=== PATIENT | female | born 1960 | race Caucasian/White ===

== ENCOUNTER 2021-07-08 18:27 | Inpatient (IN) | payer BC, SELFPAY ==
[2021-07-08] VITALS (8 sets, daily range): BP systolic 94–107; BP diastolic 61–69; PULSE 76–116; RESP 19–24; TEMP 36.5–38.1; O2SAT 83–94; BMI 27.4; BMI 28.8
--- NOTE | 2021-07-08 18:45 | CT_ITS ---
EXAM: CT ANGIOGRAPHY CHEST WITHOUT AND WITH INTRAVENOUS CONTRAST CLINICAL INDICATION: pulmonary embolism TECHNIQUE: Helically acquired angiography images were obtained of the chest without and with intravenous contrast. This CT exam was performed using one or more of the following dose reduction techniques: automated exposure control, adjustment of the mA and/or kV according to patient size, and/or use of iterative reconstruction technique. This report was created using [employer] report generation technology. MIP reconstructed images were created and reviewed. CONTRAST: IV 100mL Isovue-370 COMPARISON: None. FINDINGS: PULMONARY ARTERIES: No demonstrated pulmonary embolism or arterial dissection. AORTA: Unremarkable. Normal in caliber. No evidence of dissection. GREAT VESSELS OF AORTIC ARCH: Unremarkable. Normal in caliber. No evidence of dissection. LUNGS AND PLEURAL SPACES: There is bilateral pneumonia. No mass. No pleural effusion or thickening. HEART: Unremarkable. Heart size is normal. No pericardial effusion. No signs of right heart strain, ratio of right ventricle to left ventricle measures less than 1. MEDIASTINUM: There is a hiatal hernia. No mediastinal or hilar adenopathy. Esophagus is unremarkable. THYROID: Unremarkable. No thyroid lesions. BONES/JOINTS: There are degenerative findings of the thoracic spine. No suspicious lytic or blastic abnormality. LIVER: 18 mm simple cysts of the liver. No follow-up required. CT/CTA Chest W/WO Contrast IMPRESSION: 1. No demonstrated pulmonary embolism or arterial dissection. 2. There is bilateral pneumonia. Electronically Signed: Patrice Schumacher MD at 20:01 EDT , Service support ,
--- NOTE | 2021-07-08 18:46 | EDS_ITS ---
HPI History of Present Illness Chief Complaint: Shortness of Breath Informant: patient Narrative Narrative: 61-year-old female states that she became ill with Covid approximately 10 days ago. She states that she has been checking her pulse oximeter at home and has gone down to 88%. She was advised by her doctor's office to come to emergency. Patient does note some vomiting diarrhea. She notes continued cough and shortness of breath she is not vaccinated against COVID-19 PFSH PFSH Medical History Breast cancer Non-smoker Medical History no medical history no medical history Home Medications omeprazole 20 mg PO DAILY 07/08/21 [History Last Taken Unknown] Allergy/AdvReac Type Severity Reaction Status Date / Time No Known Allergies Allergy Verified 07/08/21 18:31 Surgical History (Updated 07/08/21 @ 19:00 by Gibson Lopes) History of mastectomy Social History (Updated 07/08/21 @ 18:[address] Camden Gilliland, DO) Smoking Status: Never smoker substance use type: does not use ROS ROS ED Constitutional Constitutional ED: Reports chills, fever(s) and sweats; Denies weight loss Eyes Eyes: Denies change in vision or diplopia ENT ENT ED: Denies ear pain, rhinorrhea or sore throat Cardiovascular Cardiovascular: Denies chest pain, orthopnea, palpitations or racing heartbeat Respiratory/Chest Respiratory/Chest: Reports cough, dyspnea and dyspnea on exertion; Denies orthopnea Gastrointestinal Gastrointestinal: Reports diarrhea, nausea and vomiting; Denies abdominal pain Genitourinary Genitourinary ED: Denies dysuria, hematuria or urinary frequency Musculoskeletal Musculoskeletal: Reports myalgias; Denies arthralgias Integumentary Denies abscess or rash Neurologic Neurologic: Reports headache(s); Denies weakness Psychiatric Psychiatric: Denies anxiety, depression, suicidal ideation or suicidal thoughts Endocrine Endocrinology: Denies polydipsia, polyphagia or polyuria Allergic/Immunologic Allergic/Immunologic ED: Denies mouth swelling, tongue swelling or urticaria EXAM Physical Exam Const Vital Signs: 07/08/21 18:29 07/08/21 21:30 07/08/21 21:33 Temperature 98.4 F Temperature Source Temporal Pulse Rate 106 H 106 H 116 H Respiratory Rate 20 H Blood Pressure 94/69 Blood Pressure Mean 77 Pulse Ox 92 83 88 Oxygen Delivery Method Room Air Room Air Nasal Cannula Oxygen Flow Rate (L/min) 3 07/08/21 21:38 Temperature 99.4 F H Temperature Source Temporal Pulse Rate 76 Respiratory Rate 24 H Blood Pressure 103/67 Blood Pressure Mean 79 Pulse Ox 92 Oxygen Delivery Method Nasal Cannula Oxygen Flow Rate (L/min) 3 Positive well nourished and well developed General Appearance ED: well developed HEENT Reports normocephalic, head/scalp atraumatic and moist mucous membranes Eyes PERRL and EOMs intact bilaterally Neck no lymphadenopathy, supple and no JVD Resp normal respiratory effort and clear to auscultation bilaterally Cardio regular rate, regular rhythm and no murmurs GI normal to inspection, nondistended, normoactive bowel sounds and non-tender Palpation: soft Back/Spine no CVA tenderness and normal ROM Extremity normal to inspection General Extremety ED: Negative for edema General Extremity: Negative for edema Neuro oriented x3 and CN's II-XII intact bilaterally Sensorium / Orientation: alert Motor Exam: strength 5/5 throughout Psych mental status grossly normal Mood & Affect: Negative for depressed or tearful Skin no rashes or lesions noted and no wounds MDM MDM MDM Narrative Medical decision making narrative: Patient is Covid positive. She is 83% on room air. She has a leukopenia at 3.7. Platelet count of 306. The patient's troponin is 9. BUN 10 with a creatinine of 0.71. CTA of the chest demonstrates multifocal areas of pneumonitis. There is no pulmonary embolism. Patient is currently requiring 4 L and is satting 91%. We will give her a dose of Decadron. Plan will be for admission Lab Data Labs: Laboratory Results - last 24 hr 07/08/21 07/08/21 18:50 18:50 WBC 3.7 L RBC 4.19 L Hgb 11.1 L Hct 34.5 L MCV 82.3 MCH 26.5 L MCHC 32.2 RDW Std Deviation 41.4 RDW Coeff of Brooks 13.9 Plt Count 306 MPV 8.3 Immature Gran % (Auto) 0.500 Neut % (Auto) 80.9 H Lymph % (Auto) 15.1 L [place] % (Auto) 3.5 Eos % (Auto) 0.0 Baso % (Auto) 0.0 Absolute Neuts (auto) 3.0 Absolute Lymphs (auto) 0.56 L Nucleated RBC % 0 Differential Comment SCANNED Diff Path Review May foll Sodium 135 L Potassium 3.3 L Chloride 100 Carbon Dioxide 25.0 Anion Gap 10 BUN 10 Creatinine 0.71 Estim Creat Clear Calc 67.09 Est GFR (MDRD) Af Amer 108 Est GFR (MDRD) Non-Af 89 BUN/Creatinine Ratio 14.2 Glucose 111 H Calcium 8.5 Total Bilirubin 0.50 AST 33 ALT 34 Alkaline Phosphatase 59 Troponin I High Sens 9 Total Protein 7.2 Albumin 2.9 L Globulin 4.3 H Albumin/Globulin Ratio 0.7 L Radiography Diagnostic Testing: Radiology Impression Chest CTA 07/08/21 18:45 IMPRESSION: 1. No demonstrated pulmonary embolism or arterial dissection. 2. There is bilateral pneumonia. Electronically Signed: Patrice Schumacher MD at 20:01 EDT , Service support , Discharge Plan Dx/Rx/DC Orders Clinical Impression: COVID-19, Acute hypoxemic respiratory failure due to COVID-19, Leukopenia Disposition Disposition: Acute Care [facility]
[2021-07-08 19:08] LABS: Absolute Lymphocyte Count 0.56 X10^3/uL (0.83-4.51); Hematocrit 34.5 % (37-47); Hemoglobin 11.1 g/dL (12.0-15.0); Lymphocyte # 0.56 X10^3/ul (0.83-4.51); Lymphocyte % 15.1 % (19-41); Mean Corp Hgb Conc 32.2 g/dL (32-36); Mean Corpuscular Hgb 26.5 pg (27.0-32.0); Mean Corpuscular Volume 82.3 fL (81-99); Mean Platelet Vol. 8.3 fl (6.2-12.0); Monocyte# 0.13 X10^3/uL; Monocyte% 3.5 % (0-10); NRBC Flagged by Analyzer 0 % (0-5); Neutrophil % 80.9 % (47-70); POSITIVE DIFFERENTIAL YES; POSITIVE MORPHOLOGY YES; Platelet Count 306 K/mm3 (150-450); RBC Distribution Width CV 13.9 % (11.6-14.6); RBC Distribution Width SD 41.4 fl (35.1-43.9); Red Blood Count 4.19 M/mm3 (4.2-5.4); White Blood Count 3.7 K/mm3 (4.4-11.0)
[2021-07-08] MEDS: 0.9% Normal Saline 1,000 ML 1000 ML IV (19:11)
[2021-07-08 19:21] LABS: Differential Indicated SCAN CRITERIA MET
[2021-07-08 19:23] LABS: ALB/GLOB Ratio 0.7 RATIO (0.9-2.4); AST(SGOT) 33 U/L (15-37); Alanine Aminotransfer ALT/SGPT 34 U/L (13-56); Albumin, Serum 2.9 g/dL (3.2-5.0); Alkaline Phosphatase 59 U/L (45-117); Anion Gap 10 (5-15); BUN 10 mg/dL (7-18); BUN/Creat Ratio 14.2 RATIO (10-20); Calcium,Total 8.5 mg/dL (8.5-10.1); Chloride 100 mmol/L (98-107); Creatinine, Serum 0.71 mg/dL (0.55-1.02); EST Glomerular Filtration Rate 89 mL/min (>60); Est Glom Filt Rate - Afr Amer 108 mL/min (>60); Estimated Creatinine Clearance 67.09 ml/min; Globulin 4.3 g/dL (2.2-4.2); Glucose 111 mg/dL (74-106); Potassium 3.3 mmol/L (3.5-5.1); Protein, Total 7.2 g/dL (6.4-8.2); Sodium Level 135 mmol/L (136-145); Troponin-I HS 9 pg/mL (3.0-54.0)
[2021-07-08 20:02] LABS: Differential Comment SCANNED
--- NOTE | 2021-07-08 21:32 | ED.RN ---
PT WAS 83% ON ROOM AIR WHILE GETTING UP TO BSC. PT WAS THEN PLACED ON 3L NC WHERE HER PULSE OX ONLY CAME UP TO 88% WHILE STANDING AT BEDSIDE FOR A FEW MINUTES. PT STATES HEADACHE WORSENED WHILE UP
--- NOTE | 2021-07-08 21:56 | HP.PCM.HOS_ITS ---
HPI - General General Date of Admission: 07/08/21 Date of Service: 07/08/21 Chief Complaint: Hypoxia HPI Narrative ISABELLA CRUZ, is a 61 F with a significant history of breast cancer status post mastectomy who presents to emergency department with hypoxia on the day of presentation. Patient was monitoring her oxygen saturation and documenting on her remote medical records. A nurse at her PCP office called and advised her to come to emergency department because her oxygen saturation were low. Reportedly her oxygen saturation was about 88% on room air. Patient reports Covid-like symptoms for 10 days. She reported her Covid-like symptoms as shortness of breath; fever with highest temperature of 102 Fahrenheit. Further she reports cough which is dry most of the time but occasionally productive for clear sputum. She denies nausea or vomiting. She reports diarrhea. However on the day of presentation she did not have diarrhea. She denies dysgeusia or anosmia. She reports anorexia and myalgia. She reports fatigue and weakness. She tested positive for COVID-19 virus at [facility] urgent care 6 days before presentation. She is unvaccinated for COVID-19 virus. [facility] Medical History Breast cancer Non-smoker Medical History no medical history Home Medications omeprazole 20 mg PO DAILY 07/08/21 [History Last Taken Unknown] Allergy/AdvReac Type Severity Reaction Status Date / Time No Known Allergies Allergy Verified 07/08/21 18:31 Family History Mother Ovarian cancer Father Lung cancer Surgical History History of mastectomy Social History Smoking Status: Never smoker substance use type: does not use ROS ROS Narrative Constitutional: Reports fever, chills, fatigue, and anorexia. Denies change in weight Eyes: Denies blurry vision, change in eye color, change in vision, discharge from eye(s), double vision, erythema, eye pain, loss of vision or other HEENT: Denies abnormal hearing, dysphagia, ear pain, epistaxis, headache(s), hearing loss, nasal congestion, nasal discharge, post nasal drip, sinus pressure, sore throat or other Cardiovascular: Denies chest pain or palpitations. Respiratory/Chest: Reports cough and with occasional sputum production. Reports shortness of breath. Denies wheezes. Gastrointestinal: Denies nausea or vomiting. Reports diarrhea (on the day of presentation she did not have any diarrhea ) Genitourinary: Denies burning urination, difficulty urinating, dysuria, hematuria, nocturia, urinary frequency, urinary hesitancy, urinary incontinence, urinary urgency or other Musculoskeletal: Reports myalgia. Denies arthralgias, back pain, joint pain, joint stiffness, joint swelling, or other Neurologic: Denies abnormal gait, abnormal speech, confusion, disequilibrium, dizziness, focal weakness, headache(s), numbness, paresthesias, seizure-like activity, seizures, syncope, tingling, tremor(s) or other Psychiatric: Denies anxiety, depression, homicidal ideation, suicidal ideation or other Endocrinology: Denies change in body appearance, excessive sweating, heat intolerance, polydipsia, polyuria or other Hematologic/Lymphatic: Denies anemia, easy bleeding, easy bruising, lymphadenopathy or other Integumentary: Denies rashes Allergic/Immunologic: Denies rhinitis, hives, eczema, asthma or other Vital Signs Vital Signs Vital Signs: 07/08/21 18:29 07/08/21 21:30 07/08/21 21:33 Temperature 98.4 F Temperature Source Temporal Pulse Rate 106 H 106 H 116 H Respiratory Rate 20 H Blood Pressure 94/69 Blood Pressure Mean 77 Pulse Ox 92 83 88 Oxygen Delivery Method Room Air Room Air Nasal Cannula Oxygen Flow Rate (L/min) 3 07/08/21 21:38 07/08/21 21:51 Temperature 99.4 F H 97.7 F L Temperature Source Temporal Temporal Pulse Rate 76 77 Respiratory Rate 24 H 19 H Blood Pressure 103/67 96/65 Blood Pressure Mean 79 75 Pulse Ox 92 93 Oxygen Delivery Method Nasal Cannula Room Air Oxygen Flow Rate (L/min) 3 Weight Weight: 70.307 kg Body Mass Index (BMI) 27.4 Physical Exam Narrative Physical exam: General: Well-nourished, well-developed. Head: Normocephalic, atraumatic, no tenderness Eyes: PERRLA, EOMI ENT, no trauma, moist mucous membranes, no rhinorrhea Neck: Nontender, full range of motion, no spinal tenderness, deformities, step- off CVS: Regular rate and rhythm. S1-S2 present. No murmur, gallop or rub. Respiratory : Rales. Chest wall nontender, no wheezing Abdomen: Soft, nontender, nondistended, normal bowel sounds, no masses : Deferred Back: Nontender, no CVA tenderness, no midline spinal tenderness, deformities, step-offs Extremities: Nontender full range of motion, no trauma Skin: Normal color, no trauma, abrasions Neuro: Alert, oriented, cranial nerves II through XII grossly intact. Psychiatry: Normal mood. Normal affect. Not depressed. Not anxious. Results Lab / Micro Data Result Diagrams: 07/08/21 18:50 07/08/21 18:50 Labs: Laboratory Results - last 24 hr 07/08/21 18:50: WBC 3.7 L, RBC 4.19 L, Hgb 11.1 L, Hct 34.5 L, MCV 82.3, MCH 26.5 L, MCHC 32.2, RDW Std Deviation 41.4, RDW Coeff of Brooks 13.9, Plt Count 306, MPV 8.3, Immature Gran % (Auto) 0.500, Neut % (Auto) 80.9 H, Lymph % (Auto) 15.1 L, [place] % (Auto) 3.5, Eos % (Auto) 0.0, Baso % (Auto) 0.0, Absolute Neuts (auto) 3.0, Absolute Lymphs (auto) 0.56 L, Nucleated RBC % 0, Differential Comment SCANNED, Diff Path Review February foll 07/08/21 18:50: Sodium 135 L, Potassium 3.3 L, Chloride 100, Carbon Dioxide 25.0, Anion Gap 10, BUN 10, Creatinine 0.71, Estim Creat Clear Calc 67.09, Est GFR (MDRD) Af Amer 108, Est GFR (MDRD) Non-Af 89, BUN/Creatinine Ratio 14.2, Glucose 111 H, Calcium 8.5, Total Bilirubin 0.50, AST 33, ALT 34, Alkaline Phosphatase 59, Troponin I High Sens 9, Total Protein 7.2, Albumin 2.9 L, Globulin 4.3 H, Albumin/Globulin Ratio 0.7 L Radiology Impression Chest CTA 07/08/21 18:45 IMPRESSION: 1. No demonstrated pulmonary embolism or arterial dissection. 2. There is bilateral pneumonia. Electronically Signed: Patrice Schumacher MD at 20:01 EDT , Service support , Assessment & Plan Assessment/Plan (1) Acute hypoxemic respiratory failure due to COVID-19: (2) COVID-19: (3) Leukopenia: QUALIFIERS: Leukopenia type: lymphocytopenia Qualified Code(s): D72.810 - Lymphocytopenia (4) Hypokalemia: PLAN: Acute hypoxemic respiratory failure secondary to SARS- COV 2 Oxygen saturation of 83% on room air at emergency department. Patient required 3L of nasal cannula oxygen. Oxygen supplementation continued. Review of Emergency department labs showed leukopenia with white count of 3.7; neutrophilia with neutrophils of 80.9% and lymphopenia with lymphocyte of 15.1%. Review of community records show that 07/02/2021 patient had a positive Covid PCR test at [facility]. Actual chest CTA image independently interpreted showed bilateral infiltrates. I agree with alleges interpretation. Procalcitonin was ordered. Procalcitonin returned to be unrevealing. Received Decadron p.o. at emergency department and continued. Since patient symptoms started 10 days ago will start patient on remdesivir. Creatinine clearance and liver enzymes is appropriate. Will trend CMP. Tylenol for fever Mucinex ordered Incentive spirometer and Acapella ordered. Hypokalemia Review of Emergency department showed potassium level of 3.3. Like secondary to diarrhea and poor nutrition Potassium placement ordered. Check magnesium. GERD PPI continued. DVT prophylaxis Subcutaneous Lovenox ordered. Charges/Coding Visit Charges Inpatient E&M: 76744 Init Hosp L3
[2021-07-08] MEDS: dexAMETHasone 4 MG Tablet 6 MG PO (21:57)
[2021-07-09] VITALS (8 sets, daily range): BP systolic 100–120; BP diastolic 63–78; PULSE 66–76; RESP 18–22; TEMP 36.2–36.9; O2SAT 92–99
[2021-07-09 00:21] LABS: Magnesium 1.9 mg/dL (1.6-2.6)
[2021-07-09] MEDS: 0.9% Saline Lock 10 ML Syringe IV ×2 (00:45→20:19)
[2021-07-09] MEDS: Potassium Chloride Oral Tablet 20 MEQ 60 MEQ PO (00:46)
[2021-07-09] MEDS: Enoxaparin 30 MG/0.3 ML Syringe SC ×3 (00:46→20:18)
[2021-07-09] MEDS: Acetaminophen 325 MG Tablet 650 MG PO (00:46)
[2021-07-09] MEDS: guaiFENesin 1,200 MG Tablet 1200 MG PO ×3 (00:51→20:18)
[2021-07-09 01:32] LABS: Procalcitonin 0.13 ng/mL (0.00-0.09)
[2021-07-09 07:23] LABS: Absolute Lymphocyte Count 0.44 X10^3/uL (0.83-4.51); Absolute Neutrophil Count 2.6 X10^3/uL (2.0-7.7); Basophil# 0.01 X10^3/uL; Basophil% 0.3 % (0-1); Hemoglobin 10.9 g/dL (12.0-15.0); Lymphocyte # 0.44 X10^3/ul (0.83-4.51); Lymphocyte % 14.1 % (19-41); Mean Corp Hgb Conc 31.1 g/dL (32-36); Mean Corpuscular Volume 83.3 fL (81-99); Mean Platelet Vol. 8.7 fl (6.2-12.0); Monocyte# 0.08 X10^3/uL; Monocyte% 2.6 % (0-10); NRBC Flagged by Analyzer 0 % (0-5); Neutrophil # 2.55 X10^3/uL (2.7-7.7); Neutrophil % 81.4 % (47-70); POSITIVE DIFFERENTIAL YES; POSITIVE MORPHOLOGY YES; Platelet Count 308 K/mm3 (150-450); RBC Distribution Width SD 42.9 fl (35.1-43.9); White Blood Count 3.1 K/mm3 (4.4-11.0)
[2021-07-09 07:28] LABS: Differential Indicated SCAN CRITERIA MET
[2021-07-09 08:02] LABS: ALB/GLOB Ratio 0.6 RATIO (0.9-2.4); AST(SGOT) 29 U/L (15-37); Alanine Aminotransfer ALT/SGPT 34 U/L (13-56); Albumin, Serum 2.5 g/dL (3.2-5.0); Alkaline Phosphatase 56 U/L (45-117); Anion Gap 9 (5-15); BUN 11 mg/dL (7-18); BUN/Creat Ratio 19.4 RATIO (10-20); Calcium,Total 8.3 mg/dL (8.5-10.1); Chloride 108 mmol/L (98-107); Creatinine, Serum 0.57 mg/dL (0.55-1.02); EST Glomerular Filtration Rate 114 mL/min (>60); Est Glom Filt Rate - Afr Amer 138 mL/min (>60); Estimated Creatinine Clearance 83.57 ml/min; Globulin 4.2 g/dL (2.2-4.2); Glucose 148 mg/dL (74-106); Potassium 4.3 mmol/L (3.5-5.1); Protein, Total 6.7 g/dL (6.4-8.2); Sodium Level 140 mmol/L (136-145)
[2021-07-09 08:40] LABS: Differential Comment SCANNED
[2021-07-09] MEDS: dexAMETHasone 2 MG TABLET 6 MG PO (09:18)
[2021-07-09] MEDS: Pantoprazole Sodium 20 MG Tablet PO (09:18)
--- NOTE | 2021-07-09 13:07 | CASEMGMT ---
LI BRASWELL Assessment: Face to Face with pt for initial transition planning/care coordination assessment. LI BRASWELL introduced self and role at [facility], pt voices understanding and consents to assessment. Pt is A/O x4 and answers all questions appropriately at this time. Pt sitting up in bed in no distress with O2 on. Care providers, pharmacy, and demographics verified/updated. Admitting Dx: SARS secondary to COVID 19 PCP: [facility] Specialists: Pt denies. Preferred Pharmacy: [facility] Insurance: [place] Prescription Benefit: yes LW/HPOA: Pt denies having a LW/DPOA and denies need for info regarding AD. LNOK: Justin Khan, Living Arrangements: Pt lives with and two adult children in a single story house with 4 steps to enter with a rail. Pt reports being I in ADL's and denies concerns at home. Transportation: Pt drives self and denies concerns with transportation. DME/HHC/SNF: Pt denies having any DME. She has had HHC in the past but is unsure of the name of the agency. Denies hx of SNF stays. Pt was first tested for COVID at [facility] urgent care. Pt family is negative. Pt states she can quarantine from family using separate bedrooms and bathrooms. She has family who can provide her with groceries and supplies. Provided pt with a list of local in network DME companies, she has no preference should she need O2 at dc. Pt states no concerns with going home at time of dc. Pt states no further concerns/needs. CM to follow. Advised pt to ask CM if any further question/concerns/needs arise, voices understanding. Pt Goal: Home Plan: Home
--- NOTE | 2021-07-09 14:09 | PCM.PN.HOSP ---
Subjective Subjective Doing well, feels a bit better than when she came in. She is at around day 10 or 11 today of symptom onset. Objective Data Objective Data Vital Signs: Vital Signs Temp Pulse Resp BP Pulse Ox 97.7 F L 72 18 100/70 96 07/09/21 09:30 07/09/21 09:30 07/09/21 09:30 07/09/21 09:30 07/09/21 09:30 Oxygen Flow Rate (L/min) 2 Oxygen Delivery Method Nasal Cannula Weight: 162 lb 7.691 oz Body Mass Index (BMI) 28.8 Intake & Output: Intake and Output for Last 24 Hours 07/08/21 07/09/21 07/10/21 03:59 03:59 03:59 Intake Total 1000 / 1000 250 / 250 Balance 1000 / 1000 250 / 250 Lab / Micro Data Result Diagrams: 07/09/21 06:10 07/09/21 06:10 Labs: Laboratory Results - last 24 hr 07/08/21 18:50: WBC 3.7 L, RBC 4.19 L, Hgb 11.1 L, Hct 34.5 L, MCV 82.3, MCH 26.5 L, MCHC 32.2, RDW Std Deviation 41.4, RDW Coeff of Brooks 13.9, Plt Count 306, MPV 8.3, Immature Gran % (Auto) 0.500, Neut % (Auto) 80.9 H, Lymph % (Auto) 15.1 L, [place] % (Auto) 3.5, Eos % (Auto) 0.0, Baso % (Auto) 0.0, Absolute Neuts (auto) 3.0, Absolute Lymphs (auto) 0.56 L, Nucleated RBC % 0, Differential Comment SCANNED, Diff Path Review February07/08/21 18:50: Sodium 135 L, Potassium 3.3 L, Chloride 100, Carbon Dioxide 25.0, Anion Gap 10, BUN 10, Creatinine 0.71, Estim Creat Clear Calc 67.09, Est GFR (MDRD) Af Amer 108, Est GFR (MDRD) Non-Af 89, BUN/Creatinine Ratio 14.2, Glucose 111 H, Calcium 8.5, Total Bilirubin 0.50, AST 33, ALT 34, Alkaline Phosphatase 59, Troponin I High Sens 9, Total Protein 7.2, Albumin 2.9 L, Globulin 4.3 H, Albumin/Globulin Ratio 0.7 L 07/08/21 18:50: Magnesium 1.9 07/09/21 00:50: Procalcitonin 0.13 H 07/09/21 06:10: WBC 3.1 L, RBC 4.20, Hgb 10.9 L, Hct 35.0 L, MCV 83.3, MCH 26.0 L, MCHC 31.1 L, RDW Std Deviation 42.9, RDW Coeff of Brooks 14.0, Plt Count 308, MPV 8.7, Immature Gran % (Auto) 1.600 H, Neut % (Auto) 81.4 H, Lymph % (Auto) 14.1 L, [place] % (Auto) 2.6, Eos % (Auto) 0.0, Baso % (Auto) 0.3, Absolute Neuts (auto) 2.6, Absolute Lymphs (auto) 0.44 L, Nucleated RBC % 0, Differential Comment SCANNED, Diff Path Review February07/09/21 06:10: Sodium 140, Potassium 4.3, Chloride 108 H, Carbon Dioxide 23.0, Anion Gap 9, BUN 11, Creatinine 0.57, Estim Creat Clear Calc 83.57, Est GFR (MDRD) Af Amer 138, Est GFR (MDRD) Non-Af 114, BUN/Creatinine Ratio 19.4, Glucose 148 H, Calcium 8.3 L, Total Bilirubin 0.40, AST 29, ALT 34, Alkaline Phosphatase 56, Total Protein 6.7, Albumin 2.5 L, Globulin 4.2, Albumin/Globulin Ratio 0.6 L Radiography Diagnostic Testing: Radiology Impression Chest CTA 07/08/21 18:45 IMPRESSION: 1. No demonstrated pulmonary embolism or arterial dissection. 2. There is bilateral pneumonia. Electronically Signed: Patrice Schumacher MD at 20:01 EDT , Service support , Physical Exam Const alert, oriented x3 and no apparent distress General Appearance: cooperative HEENT normocephalic and moist oral mucous membranes Eyes PERRL, EOMs intact bilaterally and conjunctivae normal Neck supple and no JVD Resp normal respiratory effort, no retractions, no use of accessory muscles and clear to auscultation bilaterally Auscultation: Negative for crackles, rales, rhonchi or wheezes Cardio regular rate, regular rhythm, S1 normal heart sound, S2 normal heart sound and no murmurs GI soft to palpation, non-tender and non-distended; Negative for hepatosplenomegaly Extremity no clubbing, cyanosis or edema Skin no rashes or lesions noted Neuro no focal motor deficits and no sensory deficits noted Psych affect normal Appearance: appropriate Assessment & Plan Assessment/Plan (1) Acute hypoxemic respiratory failure due to COVID-19: (2) COVID-19: (3) Leukopenia: QUALIFIERS: Leukopenia type: lymphocytopenia Qualified Code(s): D72.810 - Lymphocytopenia (4) Hypokalemia: PLAN: 1. Acute hypoxic respiratory failure secondary to COVID-19 pneumonia -Continue with Decadron and remdesivir, the remdesivir was started on day 9 of 10 of symptoms -We will continue to monitor oxygenation status and may need to provide either Lasix or may need to obtain a sputum culture if there is some worsening -CT is negative for PE -Continue with daily CBC CMP secondary to remdesivir 2. GERD -Stable -Continue with PPI DVT: Lovenox Charges/Coding Visit Charges Inpatient E&M: 72440 Subs Hosp L2
[2021-07-09 14:10] LABS: Pathologist Review Reviewed
[2021-07-10] VITALS (7 sets, daily range): BP systolic 96–125; BP diastolic 65–75; PULSE 67–70; RESP 16–18; TEMP 36.4–36.6; O2SAT 86–97
[2021-07-10 07:02] LABS: Absolute Lymphocyte Count 0.81 X10^3/uL (0.83-4.51); Absolute Neutrophil Count 4.6 X10^3/uL (2.0-7.7); Basophil# 0.02 X10^3/uL; Basophil% 0.3 % (0-1); Hematocrit 36.5 % (37-47); Hemoglobin 10.8 g/dL (12.0-15.0); Lymphocyte # 0.81 X10^3/ul (0.83-4.51); Lymphocyte % 13.8 % (19-41); Mean Corp Hgb Conc 29.6 g/dL (32-36); Mean Corpuscular Hgb 26.1 pg (27.0-32.0); Mean Corpuscular Volume 88.2 fL (81-99); Mean Platelet Vol. 8.5 fl (6.2-12.0); Monocyte# 0.33 X10^3/uL; Monocyte% 5.6 % (0-10); NRBC Flagged by Analyzer 0 % (0-5); Neutrophil # 4.58 X10^3/uL (2.7-7.7); Neutrophil % 78.4 % (47-70); Platelet Count 335 K/mm3 (150-450); RBC Distribution Width CV 14.2 % (11.6-14.6); RBC Distribution Width SD 46.1 fl (35.1-43.9); Red Blood Count 4.14 M/mm3 (4.2-5.4); White Blood Count 5.9 K/mm3 (4.4-11.0)
[2021-07-10 07:45] LABS: ALB/GLOB Ratio 0.6 RATIO (0.9-2.4); AST(SGOT) 25 U/L (15-37); Alanine Aminotransfer ALT/SGPT 32 U/L (13-56); Albumin, Serum 2.3 g/dL (3.2-5.0); Alkaline Phosphatase 50 U/L (45-117); Anion Gap 6 (5-15); BUN 17 mg/dL (7-18); BUN/Creat Ratio 32.9 RATIO (10-20); Calcium,Total 8.6 mg/dL (8.5-10.1); Chloride 110 mmol/L (98-107); Creatinine, Serum 0.52 mg/dL (0.55-1.02); EST Glomerular Filtration Rate 128 mL/min (>60); Est Glom Filt Rate - Afr Amer 155 mL/min (>60); Globulin 4.1 g/dL (2.2-4.2); Glucose 140 mg/dL (74-106); Potassium 4.3 mmol/L (3.5-5.1); Protein, Total 6.4 g/dL (6.4-8.2); Sodium Level 137 mmol/L (136-145)
[2021-07-10] MEDS: dexAMETHasone 2 MG TABLET 6 MG PO (08:56)
[2021-07-10] MEDS: Pantoprazole Sodium 20 MG Tablet PO (08:56)
[2021-07-10] MEDS: Enoxaparin 30 MG/0.3 ML Syringe SC ×2 (08:57→20:15)
[2021-07-10] MEDS: guaiFENesin 1,200 MG Tablet 1200 MG PO ×2 (08:57→20:15)
--- NOTE | 2021-07-10 13:08 | PCM.PN.HOSP ---
Subjective Subjective Doing well, maintaining oxygen sats at around 2 L nasal cannula. She does have some crackles today. Objective Data Objective Data Vital Signs: Vital Signs Temp Pulse Resp BP Pulse Ox 97.7 F L 68 18 105/75 92 07/10/21 08:15 07/10/21 08:15 07/10/21 08:15 07/10/21 08:15 07/10/21 08:42 Oxygen Flow Rate (L/min) [ 4 AMBULATING with Oxygen #3] Oxygen Flow Rate (L/min) [ 3 AMBULATING with Oxygen #2] Oxygen Flow Rate (L/min) [ 2 AMBULATING with Oxygen #1] Oxygen Flow Rate (L/min) [At 2 REST with Oxygen] Oxygen Flow Rate (L/min) 2 Oxygen Delivery Method Nasal Cannula Weight: 162 lb 7.691 oz Body Mass Index (BMI) 28.8 Intake & Output: Intake and Output for Last 24 Hours 07/09/21 07/10/21 07/11/21 03:59 03:59 03:59 Intake Total 1000 / 1000 800 / 800 400 / 400 Balance 1000 / 1000 800 / 800 400 / 400 Lab / Micro Data Result Diagrams: 07/10/21 06:32 07/10/21 06:32 Labs: Laboratory Results - last 24 hr 07/08/21 18:50: Diff Path Review Reviewed 07/10/21 06:32: WBC 5.9, RBC 4.14 L, Hgb 10.8 L, Hct 36.5 L, MCV 88.2 D, MCH 26.1 L, MCHC 29.6 L, RDW Std Deviation 46.1 H, RDW Coeff of Brooks 14.2, Plt Count 335, MPV 8.5, Immature Gran % (Auto) 1.900 H, Neut % (Auto) 78.4 H, Lymph % (Auto) 13.8 L, [place] % (Auto) 5.6, Eos % (Auto) 0.0, Baso % (Auto) 0.3, Absolute Neuts (auto) 4.6, Absolute Lymphs (auto) 0.81 L, Nucleated RBC % 0 07/10/21 06:32: Sodium 137, Potassium 4.3, Chloride 110 H, Carbon Dioxide 21.0, Anion Gap 6, BUN 17, Creatinine 0.52 L, Estim Creat Clear Calc 91.60, Est GFR (MDRD) Af Amer 155, Est GFR (MDRD) Non-Af 128, BUN/Creatinine Ratio 32.9 H, Glucose 140 H, Calcium 8.6, Total Bilirubin 0.30, AST 25, ALT 32, Alkaline Phosphatase 50, Total Protein 6.4, Albumin 2.3 L, Globulin 4.1, Albumin/Globulin Ratio 0.6 L Physical Exam Const alert, oriented x3 and no apparent distress General Appearance: cooperative HEENT normocephalic and moist oral mucous membranes Eyes PERRL, EOMs intact bilaterally and conjunctivae normal Neck supple and no JVD Resp normal respiratory effort, no retractions, no use of accessory muscles and clear to auscultation bilaterally Auscultation: crackles; Negative for rales, rhonchi or wheezes Cardio regular rate, regular rhythm, S1 normal heart sound, S2 normal heart sound and no murmurs GI soft to palpation, non-tender and non-distended; Negative for hepatosplenomegaly Extremity no clubbing, cyanosis or edema Skin no rashes or lesions noted Neuro no focal motor deficits and no sensory deficits noted Psych affect normal Appearance: appropriate Assessment & Plan Assessment/Plan (1) Acute hypoxemic respiratory failure due to COVID-19: (2) COVID-19: (3) Leukopenia: QUALIFIERS: Leukopenia type: lymphocytopenia Qualified Code(s): D72.810 - Lymphocytopenia (4) Hypokalemia: PLAN: 1. Acute hypoxic respiratory failure secondary to COVID-19 pneumonia -Continue with Decadron and remdesivir, the remdesivir was started on day 9 of 10 of symptoms -We will continue to monitor oxygenation status, given crackles today we will try dose of Lasix -CT is negative for PE -Continue with daily CBC CMP secondary to remdesivir 2. GERD -Stable -Continue with PPI DVT: Lovenox Charges/Coding Visit Charges Inpatient E&M: 66843 Subs Hosp L2
[2021-07-10] MEDS: 0.9% Saline Lock 10 ML Syringe IV ×2 (13:18→20:16)
[2021-07-10] MEDS: Furosemide 20 MG/2 ML VIAL IV (13:18)
[2021-07-10 13:31] LABS: Pathologist Review Reviewed
[2021-07-11 02:24] VITALS: BP 107/69; PULSE 66; RESP 16; TEMP 36.4; O2SAT 95
[2021-07-11 07:10] LABS: Absolute Lymphocyte Count 0.82 X10^3/uL (0.83-4.51); Absolute Neutrophil Count 5.7 X10^3/uL (2.0-7.7); Basophil# 0.02 X10^3/uL; Basophil% 0.3 % (0-1); Hematocrit 34.2 % (37-47); Hemoglobin 10.7 g/dL (12.0-15.0); Lymphocyte # 0.82 X10^3/ul (0.83-4.51); Lymphocyte % 11.3 % (19-41); Mean Corp Hgb Conc 31.3 g/dL (32-36); Mean Corpuscular Hgb 25.8 pg (27.0-32.0); Mean Corpuscular Volume 82.6 fL (81-99); Mean Platelet Vol. 8.5 fl (6.2-12.0); Monocyte# 0.33 X10^3/uL; Monocyte% 4.6 % (0-10); NRBC Flagged by Analyzer 0 % (0-5); Neutrophil # 5.74 X10^3/uL (2.7-7.7); Neutrophil % 79.1 % (47-70); POSITIVE MORPHOLOGY YES; Platelet Count 418 K/mm3 (150-450); RBC Distribution Width CV 13.8 % (11.6-14.6); RBC Distribution Width SD 41.6 fl (35.1-43.9); Red Blood Count 4.14 M/mm3 (4.2-5.4); White Blood Count 7.3 K/mm3 (4.4-11.0)
[2021-07-11 07:33] LABS: Differential Indicated SCAN CRITERIA MET
[2021-07-11 07:35] LABS: ALB/GLOB Ratio 0.7 RATIO (0.9-2.4); AST(SGOT) 20 U/L (15-37); Alanine Aminotransfer ALT/SGPT 33 U/L (13-56); Albumin, Serum 2.6 g/dL (3.2-5.0); Alkaline Phosphatase 52 U/L (45-117); Anion Gap 9 (5-15); BUN 25 mg/dL (7-18); BUN/Creat Ratio 41.8 RATIO (10-20); Calcium,Total 8.6 mg/dL (8.5-10.1); Chloride 104 mmol/L (98-107); EST Glomerular Filtration Rate 108 mL/min (>60); Est Glom Filt Rate - Afr Amer 130 mL/min (>60); Estimated Creatinine Clearance 79.39 ml/min; Globulin 3.9 g/dL (2.2-4.2); Glucose 145 mg/dL (74-106); Potassium 3.7 mmol/L (3.5-5.1); Protein, Total 6.5 g/dL (6.4-8.2); Sodium Level 138 mmol/L (136-145)
[2021-07-11 07:47] VITALS: O2SAT 88
[2021-07-11 08:26] VITALS: BP 109/61; PULSE 63; RESP 16; TEMP 36.3; O2SAT 97
[2021-07-11] MEDS: Pantoprazole Sodium 20 MG Tablet PO (08:30)
[2021-07-11] MEDS: Enoxaparin 30 MG/0.3 ML Syringe SC (08:30)
[2021-07-11] MEDS: guaiFENesin 1,200 MG Tablet 1200 MG PO (08:30)
[2021-07-11] MEDS: dexAMETHasone 2 MG TABLET 6 MG PO (08:30)
[2021-07-11 08:32] VITALS: O2SAT 88; O2SAT 93; O2SAT 97
[2021-07-11 09:08] VITALS: O2SAT 94
[2021-07-11 10:20] LABS: Differential Comment SCANNED; Reactive Lymphocyte 1+
[2021-07-11 13:40] VITALS: BP 112/76; PULSE 68; RESP 16; TEMP 36.4; O2SAT 98
--- NOTE | 2021-07-11 14:54 | PCM.DC ---
Discharge Instructions Diet Discharge Diet: No restrictions Activity Discharge Activity: Return to Normal Activity Dressing / Incision Call your doctor if you observe: Fever of 101 or Higher, Shortness of breath, Dizziness, Fainting spells, Swelling in the ankles, Chest pain and Increased palpitations (irregular heartbeat) Follow Up Care Test Results: Test results from this visit will be discussed in further detail at your follow-up appointment, if applicable. Discharge Plan Admission Admit Date/Time: 07/08/21 21:47 Attending Provider: Kings Stroud Primary Care Provider: Aishwarya Hernández Discharge Orders/Prescriptions Prescriptions: New dexamethasone 2 mg Tablet 6 mg PO DAILY 7 Days Qty: 21 RF: 0 Continued omeprazole 20 mg capsule,delayed release(DR/EC) 20 mg PO DAILY RF: 0 Referrals / Follow Up: Aishwarya Hernández MD [Primary Care Provider] - Within 2 Weeks Disposition Disposition (needs filled in before D/C Order can be placed): Home, Self Care
--- NOTE | 2021-07-11 14:57 | DS.PCM_ITS ---
Providers Date of Admission: 07/08/21 Primary Care Physician: Dr. Aishwarya Hernández MD Reason For Visit: SARS SECONDARY TO COVID-19 Diagnosis Discharge Diagnosis (1) Acute hypoxemic respiratory failure due to COVID-19: Status: Acute Code(s): U07.1 - COVID-19; J96.01 - Acute respiratory failure with hypoxia (2) COVID-19: Status: Acute Code(s): U07.1 - COVID-19 (3) Leukopenia: Status: Acute Code(s): D72.819 - Decreased white blood cell count, unspecified Qualifiers: Leukopenia type: lymphocytopenia Qualified Code(s): D72.810 - Lymphocytopenia (4) Hypokalemia: Status: Acute Code(s): E87.6 - Hypokalemia Medications at Discharge Home Medications omeprazole 20 mg PO DAILY 07/08/21 dexamethasone 6 mg PO DAILY 7 Days #21 tab 07/11/21 Hospital Course Operations None Procedures None Summary of Care Provided Minutes Spent on Discharge: 35 Hospital Course: Per HPI: ISABELLA CRUZ, is a 61 F with a significant history of breast cancer status post mastectomy who presents to emergency department with hypoxia on the day of presentation. Patient was monitoring her oxygen saturation and documenting on her remote medical records. A nurse at her PCP office called and advised her to come to emergency department because her oxygen saturation were low. Reportedly her oxygen saturation was about 88% on room air. Patient reports Covid-like symptoms for 10 days. She reported her Covid- like symptoms as shortness of breath; fever with highest temperature of 102 Fahrenheit. Further she reports cough which is dry most of the time but occasionally productive for clear sputum. She denies nausea or vomiting. She reports diarrhea. However on the day of presentation she did not have diarrhea. She denies dysgeusia or anosmia. She reports anorexia and myalgia. She r eports fatigue and weakness. She tested positive for COVID-19 virus at [facility] urgent care 6 days before presentation. She is unvaccinated for COVID-19 virus. Hospital Course: 1. Acute hypoxic respiratory failure secondary to COVID-19 pneumonia-she presented on day 9 of 10 of symptoms and was started on Decadron and remdesivir. She has maintained her oxygen saturations on 2 L while at rest, sleeping, and with ambulation. The dose of Lasix which did not make any significant difference on her oxygenation on the day prior to discharge. She did have a CTA on admission which was negative for PE. Given her relative stability for the last 3 days, I discussed with her the possibility of discharge today, she expressed understanding of risk benefits going home today and would like to go home if possible. We will plan for 7 more days of Decadron, she will need to stay quarantined until the Decadron is completed. I do encourage that she receive the Covid vaccine once out of quarantine. Physical Exam Const alert, oriented x3 and no apparent distress General Appearance: cooperative HEENT normocephalic and moist oral mucous membranes Eyes PERRL, EOMs intact bilaterally and conjunctivae normal Neck supple and no JVD Resp normal respiratory effort, no retractions, no use of accessory muscles and clear to auscultation bilaterally Auscultation: Negative for crackles, rales, rhonchi or wheezes Cardio regular rate, regular rhythm, S1 normal heart sound, S2 normal heart sound and no murmurs GI soft to palpation, non-tender and non-distended; Negative for hepatosplenomegaly Extremity no clubbing, cyanosis or edema Skin no rashes or lesions noted Neuro no focal motor deficits and no sensory deficits noted Psych affect normal Appearance: appropriate Weight / BMI Weight Weight: 162 lb 7.691 oz Body Mass Index (BMI) 28.8 ABG / Lab / Microbiology Data Result Diagrams: 07/11/21 06:59 07/11/21 06:59 Laboratory: Laboratory Results - last 24 hr 07/11/21 06:59: WBC 7.3, RBC 4.14 L, Hgb 10.7 L, Hct 34.2 L, MCV 82.6 D, MCH 25.8 L, MCHC 31.3 L D, RDW Std Deviation 41.6, RDW Coeff of Brooks 13.8, Plt Count 418, MPV 8.5, Immature Gran % (Auto) 4.700 H, Neut % (Auto) 79.1 H, Lymph % (Auto) 11.3 L, [place] % (Auto) 4.6, Eos % (Auto) 0.0, Baso % (Auto) 0.3, Absolute Neuts (auto) 5.7, Absolute Lymphs (auto) 0.82 L, Nucleated RBC % 0, Differential Comment SCANNED, Reactive Lymphocytes 1+ 07/11/21 06:59: Sodium 138, Potassium 3.7, Chloride 104, Carbon Dioxide 25.0, Anion Gap 9, BUN 25 H, Creatinine 0.60, Estim Creat Clear Calc 79.39, Est GFR (MDRD) Af Amer 130, Est GFR (MDRD) Non-Af 108, BUN/Creatinine Ratio 41.8 H, Glucose 145 H, Calcium 8.6, Total Bilirubin 0.30, AST 20, ALT 33, Alkaline Phosphatase 52, Total Protein 6.5, Albumin 2.6 L, Globulin 3.9, Albumin/Globulin Ratio 0.7 L D/C Instructions Discharge Diet: No restrictions Call your doctor if you observe: Fever of 101 or Higher, Shortness of breath, Dizziness, Fainting spells, Swelling in the ankles, Chest pain and Increased palpitations (irregular heartbeat) Meaningful Use Info Meaningful Use Diagnoses (Choose all that apply): None applicable Discharge Plan Admission Admit Date/Time: 07/08/21 21:47 Attending Provider: Kings Stroud Primary Care Provider: Aishwarya Hernández Discharge Orders/Prescriptions Prescriptions: New dexamethasone 2 mg Tablet 6 mg PO DAILY 7 Days Qty: 21 RF: 0 Continued omeprazole 20 mg capsule,delayed release(DR/EC) 20 mg PO DAILY RF: 0 Referrals / Follow Up: Aishwarya Hernández MD [Primary Care Provider] - Within 2 Weeks Disposition Disposition (needs filled in before D/C Order can be placed): Home, Self Care Charges/Coding Visit Charges Inpatient E&M: [id number] Disch Hosp
--- NOTE | 2021-07-13 15:04 | CASEMGMT ---
RN CM Discharge Follow Up Phone Call: SEVENE: 8 Strata: 2 Call Date: 07/13/21 Discharge Date: 07/11/21 Time of Call: 1502 Duration: <1 min Admitting Dx: SARS secondary to COVID 19 RN CM attempted to complete follow up phone call after recent hospitalization. No answer and no message left as pt did not have idenitified vm. .
== END 2021-07-11 17:19 | disposition home or self-care (01) | DRG 177 ==
LOC: ED 21:42 → MS3 22:17
PROVIDERS: Admitting Provider Hospitalist; Emergency Provider Emergency Medicine; PCP Internal Medicine; Visit Provider Family Medicine
DX: U07.1 COVID-19 (principal); J96.01 Acute respiratory failure with hypoxia; J12.82 Pneumonia due to coronavirus disease 2019; E87.6 Hypokalemia; D72.810 Lymphocytopenia; K21.9 Gastro-esophageal reflux disease without esophagitis; Z85.3 Personal history of malignant neoplasm of breast; Z90.10 Acquired absence of unspecified breast and nipple; Z28.3 Underimmunization status; Z80.1 Family history of malignant neoplasm of trachea, bronchus and lung; Z80.41 Family history of malignant neoplasm of ovary
CPT/HCPCS: 36415; 71275; 80053; 83735; 84145; 84484; 85025; 94668; 94762; 97802; 99251; 99283; J7030; J7050; Q9967; A4216; G0463; J1940